=== PATIENT | male | born 1975 | race Caucasian/White ===

== ENCOUNTER 2018-03-27 19:15 | Emergency (ER) | payer OTHER ==
[~2018-03-27] VITALS: Ht 193 cm; Wt 86.2 kg
== END 2018-03-28 00:17 | disposition home or self-care (01) ==
LOC: ER 19:15
DX: L02.416 Cutaneous abscess of left lower limb (principal)

== ENCOUNTER 2025-01-19 07:00 | Day surgery (SDC) | payer OTHER ==
[2025-01-19] MEDS ORDERED: fentaNYL CITRATE 50 MCG/ML AMPUL IV PUSH ONE (10:00)
[2025-01-19] MEDS ORDERED: MIDAZOLAM HCL 2 MG/2 ML VIAL IV ONE (10:00)
[2025-01-19] MEDS ORDERED: DIPHENHYDRAMINE HCL 50 MG/ML VIAL 1ML IV ONE (10:00)
== END 2025-01-19 11:05 | disposition home or self-care (01) ==
LOC: AMB-ENDOS 07:00
PROVIDERS: ATTEND Colon & Rectal Surgery
DX: D12.5 Benign neoplasm of sigmoid colon (principal); K63.5 Polyp of colon